=== PATIENT | female | born 1970 | race African-American/Black ===

== ENCOUNTER 2018-04-29 20:54 | Emergency (ER) | payer OTHER ==
[~2018-04-29] VITALS: Ht 162.6 cm; Wt 112.0 kg
[2018-04-29 22:23] LABS: BASOPHIL % 0.7 % (0-2)
[2018-04-29 22:24] LABS: PLATELET COUNT 488 x10^3mcL (130-400); RED CELL DISTRIBUTION WIDTH 18.7 % (11.5-14.5)
[2018-04-29 22:32] LABS: CALCIUM 8.6 mg/dL (8.5-10.1); CARBON DIOXIDE 29.4 mmol/L (21-32); CREATININE SERUM 1.5 mg/dL (0.6-1.0); POTASSIUM SERUM 3.5 mmol/L (3.5-5.1)
[2018-04-29 22:36] LABS: BILIRUBIN TOTAL 0.2 mg/dL (0.20-1.00); TOTAL PROTEIN, SERUM 7.4 g/dL (6.4-8.2)
[2018-04-29 22:39] LABS: ALBUMIN 3.1 g/dL (3.4-5.0)
[2018-04-29 23:34] LABS: UA SPECIFIC GRAVITY 1.015 (1.005-1.035); microscopic required? YES; urine erythrocyte NEGATIVE (NEGATIVE)
[2018-04-30 02:28] VITALS: BP 132/89
== END 2018-04-30 02:28 | disposition home or self-care (01) ==
LOC: ED 20:54
PROVIDERS: Emergency Medicine
DX: N23 Unspecified renal colic (principal); D86.9 Sarcoidosis, unspecified; M79.7 Fibromyalgia; Z90.710 Acquired absence of both cervix and uterus; Z88.5 Allergy status to narcotic agent; Z88.6 Allergy status to analgesic agent
CPT/HCPCS: 83880; J1940; J2270; Q0092

== ENCOUNTER 2018-07-21 17:20 | Emergency (ER) | payer OTHER ==
[~2018-07-21] VITALS: Ht 162.6 cm; Wt 77.1 kg
[2018-07-21 18:11] LABS: CALCIUM 8.9 mg/dL (8.5-10.1); CARBON DIOXIDE 28.1 mmol/L (21-32); CREATININE SERUM 1.7 mg/dL (0.6-1.0); POTASSIUM SERUM 4.1 mmol/L (3.5-5.1)
[2018-07-21 18:12] LABS: BASOPHIL % 3.8 % (0-2); PLATELET COUNT 460 x10^3mcL (130-400); RED CELL DISTRIBUTION WIDTH 19.6 % (11.5-14.5)
[2018-07-21 18:16] LABS: ALBUMIN 3.8 g/dL (3.4-5.0); BILIRUBIN TOTAL 0.3 mg/dL (0.20-1.00)
[2018-07-21 18:17] LABS: TOTAL PROTEIN, SERUM 8.3 g/dL (6.4-8.2)
[2018-07-21 20:27] VITALS: BP 117/66
== END 2018-07-21 20:27 | disposition home or self-care (01) ==
LOC: ED 17:20
PROVIDERS: Emergency Medicine
DX: G40.409 Other generalized epilepsy and epileptic syndromes, not intractable, without status epilepticus (principal); G89.29 Other chronic pain; M79.1 Myalgia; Z90.710 Acquired absence of both cervix and uterus; Z88.5 Allergy status to narcotic agent; Z88.6 Allergy status to analgesic agent
CPT/HCPCS: J2270; J2405